=== PATIENT | female | born 1950 | race Caucasian/White ===

== ENCOUNTER 2019-08-24 21:10 | Inpatient (IN) | payer BC, MEDICARE ==
[~2019-08-24] VITALS: Ht 157.5 cm; Wt 72.8 kg
[~2019-08-24 21:10] MED LIST: ASPIRIN 81M81 MG/TA2 PO; ATROVENT INHALE14 GM IH; CALCIUM 500 + D1 TA1 PO; CARDI-OMEGA1000 MG PO; CEPHALEXIN500 M1 PO; DALIRESP500 MCG PO; DHEA PO; DOXYCYCLINE 10100 MG PO; DULERA1 ARO IH; FIBER0.52 GM PO; FIBER625 MG PO; FISH OIL 1000MG1 CAP PO; FLAGYL 250250 MG/TAB PO; FORADIL AERO0.012 MG IH; GLUCOSAMINE/CHO1 TA2 PO; MUCUS; MULTIPLE VITAMI1 CAP PO; PREDNISONE20 MG PO; PROVENTIL0.09 MG/A1 IH; RT SPIRIVA18 MCG IH; SOY ISOFLAVONES40 MG PO; THEO-DUR 1100 MG/TAB PO; VENTOLIN0.09 MG IH; VITAMIN D31000 IU PO; [UNRECOGNIZED DRUG - OTHER] PO; citracal PO; krill oil PO
[2019-08-24] MEDS ORDERED: DALIRESP500 MCG PO ×2 (21:17→21:50)
[2019-08-24] MEDS ORDERED: NIRAVAM0.25 MG PO (21:18)
[2019-08-24] MEDS ORDERED: ASPIRIN 81M81 MG/TA2 PO (21:18)
[2019-08-24] MEDS ORDERED: ZOLOFT 25MG25 MG PO (21:18)
[2019-08-24] MEDS ORDERED: PULMICORT0.25 MG/2 IH (21:19)
[2019-08-24] MEDS ORDERED: PERFOROMIS20 MCG/2 M IH (21:19)
[2019-08-24 21:46] LABS: BASO # 0.1 (0.0-0.2); BASO % 0.7 % (0.0-2.0); EOS # 0.2 (0.0-0.7); EOS % 2.5 % (0-4.0); GRAN # 6.3 (1.4-6.5); GRAN % 72.1 % (42.2-75.2); HEMATOCRIT 46.3 % (37.0-47.0); HEMOGLOBIN 15.4 g/dl (12.5-16.0); LYMPH # 1.2 (1.2-3.4); LYMPH % 13.2 % (20.0-51.0); MEAN CELL VOLUME 96 fl (80.0-100.0); MEAN CORPUSCULAR HEMOGLOBIN 32 pg (27.0-31.0); MEAN CORPUSCULAR HGB CONC 33 g/dl (33.0-37.0); MEAN PLATELET VOLUME 9.7 fl (7.4-10.4); MONO % 11.2 % (1.7-9.3); PLATELET COUNT 222 K/mm3 (130-400); RED BLOOD COUNT 4.83 M/mm3 (4.10-5.30); REDCELL DISTRIBUTION WIDTH-CV 12.5 % (11.5-14.5)
[2019-08-24 21:48] LABS: ARTERIAL BLD GAS TCO2 CT 26.6; ARTERIAL BLOOD GAS BASE EXCESS 0.9 (-2-2); ARTERIAL BLOOD GAS HCO3 25.4 meq/L (22-26); ARTERIAL BLOOD GAS PCO2 40.1 mmHg (35-45); ARTERIAL BLOOD GAS PO2 77.1 mmHg (80-100); ARTERIAL BLOOD GAS pH 7.42 (7.35-7.45)
[2019-08-24 22:00] LABS: BILIRUBIN,TOTAL 0.4 mg/dL (0.0-1.0); CALCIUM 9.6 mg/dL (8.4-10.2); CREATININE, serum 0.55 (0.52-1.25); POTASSIUM 4.3 mmol/L (3.4-5.0); TOTAL PROTEIN 8.2 gm/dL (6.4-8.2)
[2019-08-25] VITALS (7 sets, daily range): BP systolic 118–152; BP diastolic 50–83; PULSE 92–106; TEMP 98–98.9
--- NOTE | 2019-08-25 00:30 | NUR ---
Received report from LIBERTAD Cruz ED. Pt arrived to medical unit room 353 vis WC.
[2019-08-25] MEDS ORDERED: SPIRIVA RE2.5 MCG/Ac IH (00:40)
--- NOTE | 2019-08-25 00:45 | NUR ---
Assessment complete. Alert and oriented. Verbal, ambulatory. Med rec completed. c/o SOB, exp wheezing ausculated. Increased work of breathing observed after ambulating to/from BR. On 3LO2NC, SpO2 95%. INT to RAC intact, flushed, dressing CDI. Needs met at this time. Call light within reach.
[2019-08-25] MEDS ORDERED: CINNAMON500 MG (00:46)
[2019-08-25] MEDS ORDERED: MUCINEX1200 MG PO (00:48)
[2019-08-25] MEDS ORDERED: FIBERCON PO (00:55)
[2019-08-25] MEDS ORDERED: VISION VITAMINS1 TA1 PO (00:56)
--- NOTE | 2019-08-25 01:30 | NUR ---
Orders in place and carried out, pt cooperative with care. Call light within reach.
--- NOTE | 2019-08-25 06:03 | NUR ---
Standby assist when ambulating to BR. Pt req breathing treatment, RT notified. Needs met at this time. Call light within reach.
[2019-08-25 06:36] LABS: HEMATOCRIT 42.8 % (37.0-47.0); HEMOGLOBIN 14.4 g/dl (12.5-16.0); MEAN CELL VOLUME 95 fl (80.0-100.0); MEAN CORPUSCULAR HEMOGLOBIN 32 pg (27.0-31.0); MEAN CORPUSCULAR HGB CONC 34 g/dl (33.0-37.0); MEAN PLATELET VOLUME 9.9 fl (7.4-10.4); PLATELET COUNT 221 K/mm3 (130-400); REDCELL DISTRIBUTION WIDTH-CV 12.5 % (11.5-14.5)
[2019-08-25 06:44] LABS: CALCIUM 8.6 mg/dL (8.4-10.2); CREATININE, serum 0.4 (0.52-1.25); POTASSIUM 3.9 mmol/L (3.4-5.0)
--- NOTE | 2019-08-25 06:57 | NUR ---
Report given to LIBERTAD Taylor.
--- NOTE | 2019-08-25 09:40 | NUR ---
Assessment completed, alert/oriented, vital signs stable and afebrile, WBC is WNL, denies pain, stated she feels slightly better than yesterday but still very dyspnic and fatigued, lungs are CTA but diminished throughout, she has been unable to provide sputum specimen for analysis, heart RRR/distal pulses are palapble, she dneies other needs at this time
--- NOTE | 2019-08-25 10:21 | NUR ---
IBAN met with the patient to discuss discharge plan. The patient lives in [place] with her , Troy (ph#[phone]). She reports independence with ADLs and has a cane, walker, wheelchair, and is on 2 liters of continuous oxygen at home from [facility] [place]. The patient's PCP is Dr. Al Dunham and she receives her medications at [facility]. She reports no difficulties obtaining her meds. The patient does not have advanced directives completed, but she was interested in obtaining a form for DPOA-HC. IBAN provided. The patient plans to return home with her upon discharge. No additional needs at this time.
--- NOTE | 2019-08-25 11:32 | NUR ---
First visit from the director of transportation. prayed with patient. No other needs right now.
--- NOTE | 2019-08-25 20:00 | NUR ---
Received report from LIBERTAD Taylor. Alert and oriented. Ambulatory and independent in room. Observed increased work of breathing and SOB when ambulating to BR. Exp wheezing ausculated, on 3LO2NC. Breathing decreased upon rest. Meds administered. INT to RAC intact, flushed, dressing CDI. Needs met at this time. Call light within reach.
--- NOTE | 2019-08-26 01:45 | NUR ---
Pt self administered 2 puffs of albuterol for SOB. RT notified and breathing treatment will be given. Pt sitting on side of bed. Pt stable. Will monitor pt. Call light within reach.
[2019-08-26 03:42] VITALS: BP 123/55; PULSE 96; TEMP 98.9
--- NOTE | 2019-08-26 05:48 | NUR ---
No other complaints made by pt during the night. Needs attended too. Meds administered. Call light within reach.
[2019-08-26 06:30] LABS: BASO % 0.1 % (0.0-2.0); GRAN # 9.7 (1.4-6.5); GRAN % 83.9 % (42.2-75.2); HEMATOCRIT 42.6 % (37.0-47.0); HEMOGLOBIN 14.3 g/dl (12.5-16.0); LYMPH # 0.9 (1.2-3.4); LYMPH % 7.9 % (20.0-51.0); MEAN CELL VOLUME 95 fl (80.0-100.0); MEAN CORPUSCULAR HEMOGLOBIN 32 pg (27.0-31.0); MEAN CORPUSCULAR HGB CONC 34 g/dl (33.0-37.0); MEAN PLATELET VOLUME 9.7 fl (7.4-10.4); MONO # 0.9 (0.1-0.6); MONO % 7.4 % (1.7-9.3); PLATELET COUNT 250 K/mm3 (130-400); RED BLOOD COUNT 4.48 M/mm3 (4.10-5.30); REDCELL DISTRIBUTION WIDTH-CV 12.9 % (11.5-14.5)
[2019-08-26 06:49] LABS: CALCIUM 8.9 mg/dL (8.4-10.2); CREATININE, serum 0.59 (0.52-1.25)
--- NOTE | 2019-08-26 06:51 | NUR ---
Report given LIBERTAD Taylor.
[2019-08-26 07:37] VITALS: BP 127/79; PULSE 95; TEMP 98.2
--- NOTE | 2019-08-26 10:23 | NUR ---
Assessment completed, alert/oriented, vital signs stable and afebrile, she did have a spike in WBC/ however she is on steroids, hospitalist have started on abx, patient reports feeling " a little better " , lung sounds are still very diminished throughout, heart RRR/ distal pulses are palpable, she is sitting at bedside and denies needs at this time
[2019-08-26 11:31] VITALS: BP 146/64; PULSE 85; TEMP 98.5
[2019-08-26 15:53] VITALS: BP 130/72; PULSE 83; TEMP 97.6
[2019-08-26 19:17] VITALS: BP 153/78; PULSE 104; TEMP 98.4
--- NOTE | 2019-08-26 21:07 | NUR ---
Received report from LIBERTAD Taylor. Alert and oriented x4. Pt sitting on bench watching TV. States feeling a bit better but still out of breath with ambulating. Exp wheezing heard throughout. On 3LO2NC. RT provided breathing treatments. Meds administered. POC and meds discussed with pt. Needs met at this time. Call light within reach.
[2019-08-26 23:14] VITALS: BP 164/83; PULSE 111; TEMP 98.6
--- NOTE | 2019-08-27 02:33 | NUR ---
PATIENT REQUESTED TO NOT BE AWAKENED FOR TREATMENT.
[2019-08-27 03:14] VITALS: BP 167/96; PULSE 112; TEMP 98.4
--- NOTE | 2019-08-27 04:11 | NUR ---
Pt received breathing treatments with RT. PT Sat on BSC and back to bed. Observed pt having increased work of breathing with audible wheezing at rest, some shakiness to BUE. RR 28. Afebrile. HR 110's, BP 167/96. SpO2 91%, on 3LO2NC. Scheduled meds administered. MATA Nix updated on pt status. One time dose of 0.5mg Xanax ordered and administered. Remained at pt bedside as requested still with SOB and audible wheezing. Will continue to monitor pt. Call light within reach.
--- NOTE | 2019-08-27 04:39 | NUR ---
Pt laying back in bed. Audible wheezing decreased. Pt states increased work of breathing has decreased. RR 24. Call light within reach.
--- NOTE | 2019-08-27 07:06 | NUR ---
Report given to LIBERTAD Lewis.
[2019-08-27 07:28] VITALS: BP 161/80; PULSE 107; TEMP 97.5
--- NOTE | 2019-08-27 07:30 | NUR ---
Report received from TUAN Giron. Pt in bed resting with [address] Denies needs, will ocnitnue to monitor.
--- NOTE | 2019-08-27 08:30 | NUR ---
Assessment charted. Pt c/o having disagreement with RT this am and not feeling well today. Anxiety appears to be elevated, scheudled anxiety meds provided. Pt sitting at side of bed, tachypneac, shallow breathing, coughing but unable to expectorate anything. INT ot R A/C, will continue to monitor.
[2019-08-27 11:27] VITALS: BP 142/69; PULSE 98; TEMP 97.7
--- NOTE | 2019-08-27 13:42 | NUR ---
SW met with the patient to follow up before the weekend and to review discharge plan. She states that she is feeling a little bit better. The patient still plans to return back home with her . SW discussed home health services. The patient reports that she does not feel like she needs any home health at this time. No other additional needs at this time, but SW to continue to follow as needs.
[2019-08-27 16:20] VITALS: BP 153/70; PULSE 87; TEMP 98.7
--- NOTE | 2019-08-27 17:58 | NUR ---
Discussed positive RVP for human metapneumovirus this afternoon, discussed POC with the patient extensively. Pt verbalized understanding, resting quietly in bed, denies needs, will give bedside shift report to nightift nurse who will resume care.
[2019-08-27 19:48] VITALS: BP 169/88; PULSE 99; TEMP 98.4
--- NOTE | 2019-08-27 19:58 | NUR ---
Pt report received from Tyra MAURER. POSTING CLERK reports elevated BP of 169/[address] parameters[address] Pt requests Tums. Education provided that there is no order for tums but this automotive service writer will contact chief of field operations provided and inform them of her request. Will continue to monitor.
[2019-08-27 23:51] VITALS: BP 156/72; PULSE 92; TEMP 98.2
[2019-08-28] VITALS (665 sets, daily range): BP systolic 147–186; BP diastolic 99–105; PULSE 85–102; TEMP 97.5–98.4; O2SAT 88–100
--- NOTE | 2019-08-28 03:49 | NUR ---
Pt has been resting in bed peacefully during the shift with noted episodes of SOA whenever Pt is performing activity such as toileting. Pt is A&Ox4 and is able to make wants/needs known. Pt has call light within reach and multiple objects on her bedside table that are within reach. Pt reports that she has "finally" began couging up sputum that this conventional underwriter notes is a small amount of thick yellow sputum. Pt remains in stable condition at this time. Will continue to monitor.
--- NOTE | 2019-08-28 05:40 | NUR ---
At about 0400 RT told this commercial real estate underwriter that breathing treatments were not effective for Pt and she was "very SOA". This commercial real estate underwriter provided scheduled antibiotic and PRN Hydralazine for elevated BP. During this interaction Pt was noted to be very SOA with auydible insp/expir wheezes and requesting that she be given an additional dose of xanax to help calm her down. After providing medications and assessing Pt this commercial real estate underwriter notified Bev ALVARADO of Pt condition, report from RT, and Pt request to see "the Dr" and for a PRN dose of xanax. Bev ALVARADO provided orders for ABG and chest X-ray and came to assess Pt. Verbal orders for solu-medrol and xanax given as well as stating that Pt was going to be transferred to MICU. This commercial real estate underwriter gave report to CHIP SILO TENDER and Pt was tranferred off the unit.
--- NOTE | 2019-08-28 05:45 | NUR ---
Report called down by LIBERTAD Yap. Patient arrives in the middle of report
[2019-08-28 05:48] LABS: ARTERIAL BLD GAS O2 SATURATION 94.7 % (92-100); ARTERIAL BLD GAS TCO2 CT 30.8; ARTERIAL BLOOD GAS BASE EXCESS 4.6 (-2-2); ARTERIAL BLOOD GAS HCO3 29.4 meq/L (22-26); ARTERIAL BLOOD GAS PCO2 43.9 mmHg (35-45); ARTERIAL BLOOD GAS PO2 64.8 mmHg (80-100); ARTERIAL BLOOD GAS pH 7.44 (7.35-7.45)
--- NOTE | 2019-08-28 05:50 | NUR ---
Patient arrives at this time Via wheelchair. Patient transferred to sit at side of bed. Patient placed on an oxymask at 5 liters and she was only on a NC at 3L. Patient's wheezing is audible down the csota. Patient is working very hard with her breathing and she is steph all the way to her fingertips. Placed bedside table in front of patient so that she is able to tripod. patient is purselip breathing. Patient can only state one to two words between breaths. Assessment complete. Lungs have loud expiratory wheezes in all brandt, all brandt are also diminished and tight, there is very little airmovement. HR is tachycardic in the low 100's, rhythm is regular with normal S1 and S2 heard. Bowel sounds are active. Pulses are palpable in all extremities. No complaints of pain. Assisted with placement of CPAP. Will continue to monitor. Call light within reach.
--- NOTE | 2019-08-28 06:30 | NUR ---
patient calls at this time and says she is having a harder time breathing, patient had returned to a mostly normal skin color, but is now very steph again. Spoke with NELSON Pablo and order for BiPAP. Called and notified RT. Marlin
--- NOTE | 2019-08-28 06:55 | NUR ---
Marlin arrives with BiPAP. Assisted with placement. Patient then requested to emergently go to the restroom. Brought bedside commode and patient urinated as well as having a BM. Cleaned patient with cleansing wipes and assisted into bed. Got patient into a comfortable position and moved bedside table over her so she could continue to tripod while on the mask. Will continue to monitor. Call light within reach.
--- NOTE | 2019-08-28 07:15 | NUR ---
Bedside report given to LIBERTAD Yanez.
[2019-08-28 07:27] LABS: HEMATOCRIT 50.4 % (37.0-47.0); MEAN CELL VOLUME 96 fl (80.0-100.0); MEAN CORPUSCULAR HGB CONC 34 g/dl (33.0-37.0); MEAN PLATELET VOLUME 9.6 fl (7.4-10.4); RED BLOOD COUNT 5.26 M/mm3 (4.10-5.30); REDCELL DISTRIBUTION WIDTH-CV 12.9 % (11.5-14.5)
[2019-08-28 07:31] LABS: CREATININE, serum 0.56 (0.52-1.25); POTASSIUM 4.1 mmol/L (3.4-5.0)
[2019-08-28 07:43] LABS: HEMOGLOBIN 16.9 g/dl (12.5-16.0); MEAN CORPUSCULAR HEMOGLOBIN 32 pg (27.0-31.0); PLATELET COUNT 354 K/mm3 (130-400)
[2019-08-28 08:58] LABS: LYMPHOCYTE 13 % (20.0-51.0); NEUTROPHILS 77 % (42.0-75.2)
[2019-08-28 08:59] LABS: PLATELET ESTIMATE NORMAL (NORMAL)
[2019-08-28 09:16] LABS: ARTERIAL BLD GAS O2 SATURATION 97.1 % (92-100); ARTERIAL BLD GAS TCO2 CT 29.3; ARTERIAL BLOOD GAS BASE EXCESS 2.7 (-2-2); ARTERIAL BLOOD GAS PCO2 44.7 mmHg (35-45); ARTERIAL BLOOD GAS pH 7.41 (7.35-7.45)
--- NOTE | 2019-08-28 19:40 | NUR ---
Patient assessment completed and charted at this time, please see documentation for details. Patient resting in bed, tolerating Bipap well at this time. Patient has had 4x loose stools today, notified NELSON Pablo and obtaining stool sample at this time.
[2019-08-29] VITALS (806 sets, daily range): BP systolic 116–173; BP diastolic 75–97; PULSE 73–96; TEMP 97.7–98.6; O2SAT 80–100
--- NOTE | 2019-08-29 06:43 | NUR ---
Assissted patient to commode, complains of increased weakness upon rising. Patient noticeably weaker than previous attempts, having harder time catching breath even with Bipap in place. Patient states "feels tired all over." Recent ABG was similar to previous, will continue to monitor patient.
[2019-08-29 07:37] LABS: BASO % 0.1 % (0.0-2.0); GRAN # 7.2 (1.4-6.5); GRAN % 74.9 % (42.2-75.2); HEMOGLOBIN 15.8 g/dl (12.5-16.0); LYMPH # 1.6 (1.2-3.4); LYMPH % 16.1 % (20.0-51.0); MEAN CELL VOLUME 97 fl (80.0-100.0); MEAN CORPUSCULAR HEMOGLOBIN 32 pg (27.0-31.0); MEAN CORPUSCULAR HGB CONC 33 g/dl (33.0-37.0); MEAN PLATELET VOLUME 9.4 fl (7.4-10.4); MONO # 0.8 (0.1-0.6); PLATELET COUNT 374 K/mm3 (130-400); RED BLOOD COUNT 4.97 M/mm3 (4.10-5.30); REDCELL DISTRIBUTION WIDTH-CV 12.9 % (11.5-14.5)
[2019-08-29 07:48] LABS: CREATININE, serum 0.66 (0.52-1.25)
[2019-08-30] VITALS (745 sets, daily range): BP systolic 96–164; BP diastolic 69–116; PULSE 70–93; TEMP 97.7–98.9; O2SAT 88–100
--- NOTE | 2019-08-30 07:15 | NUR ---
REPORT RECEIVED FROM LIBERTAD GONZALEZ. PATIENT CURRENTLY SLEEPING WITH BIPAP IN PLACE. SHE IS TOLERATING BIPAP WELL. VS WNL. WILL CONTINUE TO MONITOR
--- NOTE | 2019-08-30 10:31 | NUR ---
Per nurse, the patient is moving around but getting SOB. The patient has home oxygen. PT at this time is recommending home with family assist. Attempted to call the patient, she did not answer. SW contacted the patient's Troy (ph#[phone]) introduce oneself. SW left contact information. Will continue to monitor.
--- NOTE | 2019-08-30 10:55 | NUR ---
CALL PLACED TO AT THIS TIME WITH UPDATE. PLAN OF CARE DISCUSSED.
--- NOTE | 2019-08-30 16:45 | NUR ---
REPORT GIVEN TO LIBERTAD ESCAMILLA. PATIENT MOVED OVER TO CU ROOM 16.
[2019-08-31] VITALS (286 sets, daily range): BP systolic 127–149; BP diastolic 56–85; PULSE 60–88; TEMP 97.8–98.5; O2SAT 86–100
[2019-08-31 05:21] LABS: BASO % 0.1 % (0.0-2.0); GRAN # 7.6 (1.4-6.5); GRAN % 81.3 % (42.2-75.2); HEMATOCRIT 44.6 % (37.0-47.0); HEMOGLOBIN 14.8 g/dl (12.5-16.0); LYMPH # 1.1 (1.2-3.4); LYMPH % 11.4 % (20.0-51.0); MEAN CELL VOLUME 95 fl (80.0-100.0); MEAN CORPUSCULAR HEMOGLOBIN 31 pg (27.0-31.0); MEAN CORPUSCULAR HGB CONC 33 g/dl (33.0-37.0); MEAN PLATELET VOLUME 8.9 fl (7.4-10.4); MONO # 0.6 (0.1-0.6); MONO % 6.4 % (1.7-9.3); PLATELET COUNT 306 K/mm3 (130-400); RED BLOOD COUNT 4.71 M/mm3 (4.10-5.30); REDCELL DISTRIBUTION WIDTH-CV 12.4 % (11.5-14.5)
[2019-08-31 05:38] LABS: CALCIUM 8.5 mg/dL (8.4-10.2); CREATININE, serum 0.62 (0.52-1.25); MAGNESIUM 2.4 mg/dL (1.6-2.3); PHOSPHOROUS 3.7 mg/dL (2.5-4.5); POTASSIUM 4.2 mmol/L (3.4-5.0)
--- NOTE | 2019-08-31 08:30 | NUR ---
Assessment completd, alert oriented, vital signs stable, I have taken patient off her bi-pap and placed on 4L.o2 via NC, sats are 93-95% on 4L., lungs dinminished throughout with audible exp.wheezing noted, I have helped her up to the bathroom, patient still getting very dyspnic with exertion, has been in and evaluated/ stated he would decrease steroid dose and that from his standpoint she could transfer to Medical floor today, she is now at bedsided eating breakfast, denies other needs at this time
--- NOTE | 2019-08-31 13:16 | NUR ---
Per the patient's nurse the patient is getting around but is getting SOB. The patient has orders to transfer to the medical floor this day. IBAN informed the medical floor SW.
--- NOTE | 2019-08-31 16:08 | NUR ---
Patient is being transferred to Medical floor room 356, I have called report to LIBERTAD Borjas who is the nurse who will be assuming the patients cares from this point on, DEVELOPMENT VICE PRESIDENT is transporting patient up via wheelchair
--- NOTE | 2019-08-31 16:40 | NUR ---
PT ADMITTED TO FLOOR AND ORIENTED TO ROOM, BROUGHT IN WATER CUP, TURNED TEMP DOWN IN ROOM PER PT REQUEST. NO OTHER NEEDS AT THIS TIME.
--- NOTE | 2019-08-31 16:54 | NUR ---
PT COMPLAINING OF SOB, RT NOTIFIED.
--- NOTE | 2019-08-31 17:49 | NUR ---
PT IN CHAIR WAITING ON DINNER TO TRANSFER TO BED. NO OTHER NEEDS AT THIS TIME.
--- NOTE | 2019-08-31 19:51 | NUR ---
Sitting in recliner. Assessment complete. Lungs severely diminshed. Shortness of breath with rest. Respirations 20. Respiratory notified for inhaler and will place bipap on patient with close monitoring. Heart sounds normal. Bowels active x4. Pulses present throughout. No edema noted. INT right AC flushed without complications. Denies pain. Denies needs at this time. Call light in reach.
--- NOTE | 2019-08-31 19:55 | NUR ---
Sitting in recliner. Assessment complete. Lungs severely diminshed with expiratory wheezes. Shortness of breath with rest. Respirations 20. Respiratory notified for inhaler and will place bipap on patient with close monitoring. Heart sounds normal. Bowels active x4. Pulses present throughout. No edema noted. INT right AC flushed without complications. Denies pain. Denies needs at this time. Call light in reach.
--- NOTE | 2019-08-31 21:50 | NUR ---
Assisted into bed. Continues on bipap at this time. Will monitor.
--- NOTE | 2019-09-01 00:01 | NUR ---
Resting in bed. Denies needs. Denies pain. Call light in reach.
--- NOTE | 2019-09-01 02:37 | NUR ---
Up to bedside commode and returned to bed. Denies needs. Call light in reach.
[2019-09-01 04:43] VITALS: BP 166/74; PULSE 57; TEMP 97.6
--- NOTE | 2019-09-01 05:46 | NUR ---
Patient remained on bipap throughout night, otherwise uneventful. Resting in bed this AM. Call light in reach.
[2019-09-01 06:48] LABS: HEMATOCRIT 45.4 % (37.0-47.0); HEMOGLOBIN 15.3 g/dl (12.5-16.0); MEAN CELL VOLUME 95 fl (80.0-100.0); MEAN CORPUSCULAR HEMOGLOBIN 32 pg (27.0-31.0); MEAN CORPUSCULAR HGB CONC 34 g/dl (33.0-37.0); MEAN PLATELET VOLUME 9.1 fl (7.4-10.4); PLATELET COUNT 307 K/mm3 (130-400); RED BLOOD COUNT 4.78 M/mm3 (4.10-5.30); REDCELL DISTRIBUTION WIDTH-CV 12.3 % (11.5-14.5)
--- NOTE | 2019-09-01 07:05 | NUR ---
Report given to LIBERTAD Phelps
[2019-09-01 07:22] VITALS: BP 153/72; PULSE 60; TEMP 98
[2019-09-01 07:25] LABS: CALCIUM 8.6 mg/dL (8.4-10.2); CREATININE, serum 0.66 (0.52-1.25); MAGNESIUM 2.4 mg/dL (1.6-2.3); PHOSPHOROUS 3.7 mg/dL (2.5-4.5)
[2019-09-01 08:07] LABS: BAND 1 % (0-10); LYMPHOCYTE 7 % (20.0-51.0); NEUTROPHILS 87 % (42.0-75.2); PLATELET ESTIMATE NORMAL (NORMAL)
[2019-09-01 12:13] VITALS: BP 139/62; PULSE 78; TEMP 98.7
[2019-09-01 16:20] VITALS: BP 133/65; PULSE 69; TEMP 98.4
--- NOTE | 2019-09-01 16:30 | NUR ---
Dyed Yarn Operator was notified by RENETTA Tompkins that patient is interested in SNF placement. SW attempted to call patient twice. IBAN spoke with RN, Matite who advised patient was doing a breathing treatment. IBAN contacted patient's , Troy to discuss discharge planning. Troy reports he has discussed this with patient and is agreeable to have referrals sent to [facility], [facility] and [facility]. Troy advised he does not have preferences at this time. IBAN encouraged Troy to review [employer] at Medicare.gov which Troy reports he will do. IBAN contacted [facility] who reports they are not taking referrals at this time. [facility]. SW to continue to follow.
--- NOTE | 2019-09-01 19:00 | NUR ---
Pt report received from Michelle MAURER at bedside. Pt remains on droplet precautions at this time. Pt is noted to be sitting in her recliner watching tv and communicating much easier between breaths than when this card writer hand last cared for this Pt on the night that she was transferred to MICU for respiratory distress. Pt is A&Ox4, able to make wants/needs known, has call light at her side and no s/s of distress noted. Will continue to monitor.
--- NOTE | 2019-09-01 19:43 | NUR ---
PATIENT IS ALERT AND ORIENTED. PATIENT COMPLAINED OF TIREDNESS AND WEAKNESS. PATIENT ABLE TO COMMUNICATE NEEDS. CO2 WAS 41 THIS AM. PATIENT AMBULATE INDEPENDENTLY.
[2019-09-01 20:11] VITALS: BP 121/56; PULSE 83; TEMP 97.8
--- NOTE | 2019-09-01 23:02 | NUR ---
Pt has remained in a positive mood so far this shift and is currently resting in bed with eyes closed and Bi-Pap on. Pt is compliant with care and medication regimen and requested a PRN Tums at med pass due to indigestion. No s/s of distress noted, Pt is noted to be breathing in a regular pattern. Will continue to monitor.
[2019-09-02] VITALS (7 sets, daily range): BP systolic 116–167; BP diastolic 50–69; PULSE 59–77; TEMP 97.6–98.7
--- NOTE | 2019-09-02 02:39 | NUR ---
Pt resting in bed peacefully with eyes closed and Bi-Pap on. Breathing noted to be regular rate and pattern. Will continue to monitor.
--- NOTE | 2019-09-02 04:47 | NUR ---
This service writer advisor notified by MANAGER RESTAURANT that Pt requested a breathing treatment. This service writer advisor notified RT of request.
--- NOTE | 2019-09-02 05:06 | NUR ---
Pt requested PRN tums for indigestion. Will continue to monitor.
--- NOTE | 2019-09-02 05:55 | NUR ---
Pt resting in bed peacefully at this time. This casualty underwriter assisted with removing Bi-Pap mask for media supervisor and assisted with placing Bi-Pap mask back on. Pt remains in stable condition at this time with no s/s of distress noted. Will continue to monitor. Call light is within reach.
--- NOTE | 2019-09-02 06:59 | NUR ---
Pt report given to Ryan MAURER at bedside.
[2019-09-02 07:09] LABS: HEMATOCRIT 45.8 % (37.0-47.0); HEMOGLOBIN 14.9 g/dl (12.5-16.0); MEAN CELL VOLUME 95 fl (80.0-100.0); MEAN CORPUSCULAR HEMOGLOBIN 31 pg (27.0-31.0); MEAN CORPUSCULAR HGB CONC 33 g/dl (33.0-37.0); MEAN PLATELET VOLUME 9.1 fl (7.4-10.4); PLATELET COUNT 285 K/mm3 (130-400); RED BLOOD COUNT 4.81 M/mm3 (4.10-5.30); REDCELL DISTRIBUTION WIDTH-CV 12.3 % (11.5-14.5)
[2019-09-02 07:21] LABS: CALCIUM 8.8 mg/dL (8.4-10.2); CREATININE, serum 0.75 (0.52-1.25); MAGNESIUM 2.4 mg/dL (1.6-2.3); PHOSPHOROUS 3.1 mg/dL (2.5-4.5); POTASSIUM 3.8 mmol/L (3.4-5.0)
[2019-09-02 07:58] LABS: LYMPHOCYTE 18 % (20.0-51.0); METAMYELOCYTE 1 % (0-0); NEUTROPHILS 70 % (42.0-75.2)
[2019-09-02 07:59] LABS: PLATELET ESTIMATE NORMAL (NORMAL)
--- NOTE | 2019-09-02 09:32 | NUR ---
Pt awake and alert this morning, no C/O painat this time, shift assessments complete, left Pt sitting in recliner, call light in reach.
--- NOTE | 2019-09-02 14:35 | NUR ---
Vocational School Teacher followed up with patient on referrals and patient states she will not go to [facility] of . Patient is agreeable to [facility] if they can accept referral. SW spoke with patient about a second preference and patient is agreeable to have referral sent to [facility]. Patient inquired about need for bipap. IBAN advised a sleep study would have to be scheduled as an outpatient. IBAN contacted IBAN Lee at [facility] to advise patient does not want to be discharged there. Rosa will disregard referral. IBAN contacted Simona at [facility] and faxed updates. IBAN advised Melody that patient will need bipap at night. [facility] stated at this time they will follow referral but have not accepted. IBAN faxed referral to [facility] and left a message for [facility] coordinator, Staci. SW to continue to follow.
--- NOTE | 2019-09-02 19:41 | NUR ---
Pt resting in the room today, no C/O pain throughout, VS have remained stable, Pt has been sitting up in the recliner this afternoon. VS have remained stable.
--- NOTE | 2019-09-02 20:10 | NUR ---
At time of assessment, patient is leaning over side table after walking to and from the bathroom. She appears short of breath at this time but returns to more normal breathing during assessment. She is wearing 3L 02 nasal cannula. Lung sounds have audbile wheezes on inspiration and expiration. Heart sounds are normal and regular. She is alert and oriented and does not complain of any pain. At around 2200 she has 14 beat run of afib with RVR. State EKG ordered and she is in sinus maria d. No symptoms were observed of this, Dr. Medrano notified. Will continue to monitor.
[2019-09-03 04:28] VITALS: BP 131/65; PULSE 57; TEMP 97.9
--- NOTE | 2019-09-03 05:28 | NUR ---
Patient has had a restful night, despite calling out to use the restroom 2-3 times during the night. She is on BIPAP while she is sleeping and switches to nasal cannula when ambulating to the bathroom. After the second time going to the bathroom, she did request a PRN breathing treatment, though no increased work of breathing was observed. She has not complained of any pain, nor has she voiced any other concerns. Will continue to monitor.
[2019-09-03 06:28] LABS: HEMOGLOBIN 14.2 g/dl (12.5-16.0); MEAN CELL VOLUME 96 fl (80.0-100.0); MEAN CORPUSCULAR HEMOGLOBIN 32 pg (27.0-31.0); MEAN CORPUSCULAR HGB CONC 33 g/dl (33.0-37.0); PLATELET COUNT 232 K/mm3 (130-400); RED BLOOD COUNT 4.48 M/mm3 (4.10-5.30); REDCELL DISTRIBUTION WIDTH-CV 12.4 % (11.5-14.5)
[2019-09-03 06:45] LABS: CALCIUM 8.2 mg/dL (8.4-10.2); CREATININE, serum 0.56 (0.52-1.25); MAGNESIUM 2.2 mg/dL (1.6-2.3); PHOSPHOROUS 3.3 mg/dL (2.5-4.5)
[2019-09-03 07:58] VITALS: BP 149/67; PULSE 75; TEMP 98
[2019-09-03 08:05] LABS: BAND 2 % (0-10); EOSINOPHIL 1 % (0-4); LYMPHOCYTE 20 % (20.0-51.0); NEUTROPHILS 71 % (42.0-75.2); PLATELET ESTIMATE NORMAL (NORMAL)
--- NOTE | 2019-09-03 08:13 | NUR ---
Pt awake and alert sitting up in the bed eating breakfast, no C/O pain at this time, shift assessments complete, left Pt call light in reach, bed in lowest position.
[2019-09-03 11:27] VITALS: BP 147/55; PULSE 64; TEMP 99.2
--- NOTE | 2019-09-03 11:29 | NUR ---
BIPAP SETTINGS 16/8 FIO2 30% BACK UP RR 16
[2019-09-03] MEDS ORDERED: PROTONIX 40MG T40 MG PO (13:45)
[2019-09-03] MEDS ORDERED: PROBIOTIC ACID1 EAC3 PO (13:45)
[2019-09-03] MEDS ORDERED: PREDNISONE20 MG PO ×2 (13:49→14:12)
[2019-09-03] MEDS ORDERED: NIRAVAM0.25 MG PO (13:50)
--- NOTE | 2019-09-03 14:05 | NUR ---
Wind Farm Engineer was notified by Hospitalist that patient ready for discharge today. SW followed up with patient who reports her first preference now is [facility] but is still agreeable to [facility]. IBAN spoke with Staci at [facility] who reports they would require a negative COVID 19 test prior to acceptance. IBAN spoke with RENETTA Pop who reported a test was never administered for patient based on screening guidelines. IBAN followed up with Simona at [facility] who advised the financial team reviewed patient's insurance and they should be able to accept today if patient can discharge on CPAP. SW confirmed this with Hospitalist and faxed progress notes with settings. IBAN also advised Simona that patient had been taken off of droplet precautions. IBAN collaborated with Simona to set up transport time for 1500. IBAN provided transport time to patient, patient's Troy, and RN Ryan. Patient is agreeable to discharge to [facility] today as [facility] cannot accept without negative COVID19 test. IBAN read IM form aloud to patient who verbalized understanding and gave SW permission to sign on her behalf. IBAN placed IM in patient's chart. IBAN provided update on discharge to [facility]. SW faxed discharge orders including Post Acute Transfer COVID Assessment. No additional needs identified at this time.
[2019-09-03 14:45] VITALS: BP 147/55; PULSE 64; TEMP 99.2
--- NOTE | 2019-09-03 15:15 | NUR ---
Pt transferred to [facility], escorted to [facility], assisted transferring Pt to [facility] wheelchair, Pt left via [facility] transportation.
== END 2019-09-03 15:15 | DRG 190 ==
LOC: COL.ER 21:10 → MEDICAL 22:30 → ICU 22:30 → IMCU 08-30 18:39 → MEDICAL 08-31 17:14
PROVIDERS: Emergency Medicine; Hospitalist; Internal Medicine Pulmonary Disease; Nurse Practitioner Family; Physician Assistant; Student in an Organized Health Care Education/Training Program; ADMIT Internal Medicine
DX: J44.1 Chronic obstructive pulmonary disease with (acute) exacerbation (principal); J96.20 Acute and chronic respiratory failure, unspecified whether with hypoxia or hypercapnia; B97.81 Human metapneumovirus as the cause of diseases classified elsewhere; Z99.81 Dependence on supplemental oxygen; Z87.891 Personal history of nicotine dependence; G47.33 Obstructive sleep apnea (adult) (pediatric); R10.13 Epigastric pain; R00.0 Tachycardia, unspecified; D75.1 Secondary polycythemia; I10 Essential (primary) hypertension
CPT/HCPCS: 99222-AI; 99232-AI; 99233-AI; 99239; A4216; J0360; J0692; J1650; J2920; J2930; J7030; J7512

== ENCOUNTER → 2021-01-10 | Outpatient (CLI) | payer BC, MEDICARE ==
[~2021-01-10] MED LIST changes: +CINNAMON500 MG; +FIBERCON PO; +MUCINEX1200 MG PO; +NIRAVAM0.25 MG PO; +PERFOROMIS20 MCG/2 M IH; +PROBIOTIC ACID1 EAC3 PO; +PROTONIX 40MG T40 MG PO; +PULMICORT0.25 MG/2 IH; +SPIRIVA RE2.5 MCG/Ac IH; +VISION VITAMINS1 TA1 PO; +ZOLOFT 25MG25 MG PO
== END ==
LOC: MC.RAD 12-07 10:15
DX: Z12.31 Encounter for screening mammogram for malignant neoplasm of breast (principal)

== ENCOUNTER → 2022-02-21 | Outpatient (CLI) | payer BC, MEDICARE | LOC: MC.RAD 10:12 | DX: Z12.31 Encounter for screening mammogram for malignant neoplasm of breast (principal) ==

== ENCOUNTER → 2022-03-21 | Outpatient (CLI) | payer BC, MEDICARE | LOC: COL.VAS 03-20 11:30 | DX: R22.41 Localized swelling, mass and lump, right lower limb (principal); M79.671 Pain in right foot ==